=== PATIENT | male | born 1990 | race Caucasian/White ===

== ENCOUNTER 2017-04-17 12:16 | Emergency (ER) | payer OTHER ==
[2017-04-17 12:31] VITALS: BP 127/78
--- NOTE | 2017-04-17 12:48 | ER Document Report ---
ED Psych Disorder / Suicide - General Mode of Arrival: Ambulatory Information source: Patient TRAVEL OUTSIDE OF THE [place] IN LAST 30 DAYS: No - HPI Onset: Just prior to arrival - Refer to HPI notes Similar symptoms previously: No Recently seen / treated by doctor: No <CURTIS ALFARO - Last Filed: 04/17/17 13:46> <ROBERT LEWIS - Last Filed: 04/17/17 14:28> - General Chief Complaint: Psych Problem Stated Complaint: PSYCH EVAL Time Seen by Provider: 04/17/17 12:42 Notes: Patient is a 26 year old male presenting to the ED for a psychological evaluation. Patient and his spouse are having financial problems and they were fighting. Patient states he said some suicidal ideation statements that he did not mean. Patient denies being suicidal, or having a suicidal plan. Patient's spouse called law enforcement and was recommended to come for an evaluation. Patient has a history of hypercholesterolemia. (CURTIS ALFARO) - Related Data Allergies/Adverse Reactions: erythromycin base [Erythromycin Base] Allergy (Verified 01/01/13 14:15) rash Past Medical History - Social History Smoking Status: Current Every Day Smoker Chew tobacco use (# tins/day): No Frequency of alcohol use: Rare Drug Abuse: None Family History: Reviewed & Not Pertinent Patient has suicidal ideation: Yes Patient has homicidal ideation: No Past Surgical History: Reports: Hx Tonsillectomy - Immunizations Hx Diphtheria, Pertussis, Tetanus Vaccination: Yes <CURTIS ALFARO - Last Filed: 04/17/17 13:46> Review of Systems - Review of Systems Constitutional: No symptoms reported EENT: No symptoms reported Cardiovascular: No symptoms reported Respiratory: No symptoms reported Gastrointestinal: No symptoms reported Genitourinary: No symptoms reported Male Genitourinary: No symptoms reported Musculoskeletal: No symptoms reported Skin: No symptoms reported Hematologic/Lymphatic: No symptoms reported Neurological/Psychological: See HPI -: Yes All other systems reviewed and negative <CURTIS ALFARO - Last Filed: 04/17/17 13:46> Physical Exam <CURTIS ALFARO - Last Filed: 04/17/17 13:46> <ROBERT LEWIS - Last Filed: 04/17/17 14:28> - Vital signs Vitals: Temp Pulse Resp BP Pulse Ox 98.5 F 99 18 127/78 H 96 06/06/17 12:27 04/17/17 12:27 04/17/17 12:27 04/17/17 12:27 04/17/17 12:27 - Notes Notes: GENERAL: Alert, interacts well. No acute distress. HEAD: Normocephalic, atraumatic. EYES: Pupils equal, round, and reactive to light. ENT: Oral mucosa moist, tongue midline. NECK: Full range of motion. Supple. Trachea midline. LUNGS: Clear to auscultation bilaterally, no wheezes, rales, or rhonchi. No respiratory distress. HEART: Regular rate and rhythm. No murmurs, gallops, or rubs. ABDOMEN: Soft, non-tender. EXTREMITIES: Moves all 4 extremities spontaneously. NEUROLOGICAL: Alert and oriented x3. Normal speech. PSYCH: Normal affect, normal mood, denies suicidal ideation, no evidence for hallucinations or delusions. SKIN: Warm, dry, normal turgor. No rashes or lesions noted. (CURTIS ALFARO) Course - Laboratory Result Diagrams: 04/17/17 13:05 04/17/17 13:05 <CURTIS ALFARO - Last Filed: 04/17/17 13:46> - Laboratory Result Diagrams: 04/17/17 13:05 04/17/17 13:05 <ROBERT LEWIS - Last Filed: 04/17/17 14:28> - Re-evaluation Re-evalutation: 04/17/17 14:22 Patient reported no suicidal ideation to me. States he just said about shooting himself during the heat of the argument with his . He was seen and evaluated by psychiatry. After they contacted his the patient eloped. His was contacted again and was comfortable with him coming home and began has been hidden away and they have a friend coming from [place] who will be staying with them a few days. She had no other concerns for her or her family as well. (ROBERT LEWIS) - Vital Signs Vital signs: Temp Pulse Resp BP Pulse Ox 98.5 F 99 18 127/78 H 96 04/17/17 12:27 04/17/17 12:27 04/17/17 12:27 04/17/17 12:27 04/17/17 12:27 - Laboratory Laboratory results interpreted by me: 04/17/17 04/17/17 13:05 13:05 Urine Ascorbic Acid 40 H Salicylates < 1.0 L Acetaminophen < 10 L Discharge <CURTIS ALFARO - Last Filed: 04/17/17 13:46> <ROBERT LEWIS - Last Filed: 04/17/17 14:28> - Discharge Clinical Impression: Depression Condition: Stable Disposition: HOME, SELF-CARE Additional Instructions: Follow-up as directed by psychiatry. Scribe Documentation - Scribe Written by Scribe:: Kena Alejandre, 04/17/2017 13:44 acting as scribe for :: Aki <CURTIS ALFARO - Last Filed: 04/17/17 13:46>
[2017-04-17 13:29] LABS: ABSOLUTE EOSINOPHILS # (AUTO) 0.4 10^3/uL (0.0-0.6); ABSOLUTE LYMPHOCYTES (AUTO) 2.2 10^3/uL (0.5-4.7); ABSOLUTE MONOCYTES (AUTO) 0.7 10^3/uL (0.1-1.4); ABSOLUTE NEUT (AUTO) 6.6 10^3/uL (1.7-8.2); BASOPHILS % (AUTO) 0.5 % (0-2); EOSINOPHILS % (AUTO) 3.6 % (0-6); HEMATOCRIT 46.9 % (37.9-51.0); HEMOGLOBIN 15.6 g/dL (13.5-17.0); HGB HCT DIFFERENCE -0.1; LYMPHOCYTES % (AUTO) 22.1 % (13-45); MEAN CORPUSCULAR HEMOGLOBIN 28.9 pg (27.0-33.4); MEAN CORPUSCULAR HGB CONC 33.3 g/dL (32.0-36.0); MEAN CORPUSCULAR VOLUME 87 fl (80-97); MONOCYTES % (AUTO) 6.7 % (3-13); RED CELL DISTRIBUTION WIDTH 12.4 % (11.5-14.0); SEGMENTED NEUTROPHILS % (AUTO) 67.1 % (42-78); WHITE BLOOD COUNT 9.8 10^3/uL (4.0-10.5)
[2017-04-17 13:34] LABS: APPEARANCE,URINE SLIGHTLY-CLOUDY; BILIRUBIN,URINE NEGATIVE (NEGATIVE); GLUCOSE, URINE NEGATIVE (NEGATIVE); KETONES,URINE NEGATIVE (NEGATIVE); LEUKOCYTE ESTERASE,URINE NEGATIVE (NEGATIVE); NITRITE,URINE NEGATIVE (NEGATIVE); PROTEIN,URINE NEGATIVE (NEGATIVE); URINE SPECIFIC GRAVITY 1.021; UROBILINOGEN,URINE NEGATIVE mg/dL (<2.0)
[2017-04-17 13:46] LABS: URINE BARBITURATES SCREEN NEGATIVE; URINE METHADONE SCREEN NEGATIVE; URINE OPIATES LOW NEGATIVE; URINE PHENCYCLIDINE SCREEN NEGATIVE
[2017-04-17 13:49] LABS: ALANINE AMINOTRANSFERASE 30 U/L (21-72); ALBUMIN 4.8 g/dL (3.5-5.0); ALKALINE PHOSPHATASE 79 U/L (38-126); ANION GAP 11 (5-19); ASPARTATE AMINO TRANSFERASE 23 U/L (17-59); BILIRUBIN,DIRECT 0.3 mg/dL (0.0-0.4); BILIRUBIN,TOTAL 0.8 mg/dL (0.2-1.3); BLOOD UREA NITROGEN 14 mg/dL (7-20); CALCIUM 10.2 mg/dL (8.4-10.2); CARBON DIOXIDE 26 mmol/L (22-30); CHLORIDE 105 mmol/L (98-107); CREATININE RESULT 0.81 mg/dL (0.52-1.25); GLUCOSE 105 mg/dL (75-110); POTASSIUM 4.1 mmol/L (3.6-5.0); SODIUM 142.1 mmol/L (137-145); TOTAL PROTEIN 8.2 g/dL (6.3-8.2)
[2017-04-17 13:51] LABS: ALCOHOL < 10 mg/dL (NONE DETECTED)
--- NOTE | 2017-04-17 14:42 | ER Document Report ---
ED Psych Disorder / Suicide - General Chief Complaint: Psych Problem Stated Complaint: PSYCH EVAL Time Seen by Provider: 04/17/17 12:42 Mode of Arrival: Ambulatory Information source: Patient, Relative, [facility] Records TRAVEL OUTSIDE OF THE [place] IN LAST 30 DAYS: No - HPI Patient complains to provider of: Suicidal ideation Onset: Just prior to arrival Onset was: Sudden Suicide Risk Factors: Depressed Normal mood: Yes Associated symptoms: Normal affect, Normal mood, Depressed - multiple years., Other - medically retired in 2013 for shoulder, knee, back Similar symptoms previously: Yes Recently seen / treated by doctor: No Notes: Patient is a 26 year old male who presents today via [facility] after an argument with his escalated and he made statements suggesting suicidal ideations. Patient states he made comments he should not have under stress. Patient states they were arguing and after he made the comments he left to drive to the store to purchase a soda and smoke some cigarettes and calm down. Patient states his must have called 911 because he was pulled him over and encouraged him to present to the ED (in their patrol car) for evaluations. Patient states he is not suicidal, and should not have made the comments. Patient states he and his recently relocated to [place] from [place]. He states they were both previously stationed here at [employer]. 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 Patient states they have filed bankruptcy, which is one of their stressors. Patient endorses a history of depression, and trauma related symptoms ( nightmares) for which he was previously treated via the [place], with medications ( Effexor, Welbutrin, Prazocin, Seroquel, Lunesta, Restoril, Zoloft, Ambien). Patient states it has been roughly 1 year since he has taken them, and that he chose to discontinue his medications and treatment due to "being sick of them." Patient denies current outpatient treatment. Patient denies any prior attempts at suicide. Patient any inpatient psychiatric treatment. Patient denies drugs and alcohol. Patient denies current SI/HI. Patient made aware that this clinician would be contacting his to obtain collateral information. Allison : states they argued because their oldest son wanted to come inside from playing because it was hot. She states she felt his anger was out of control and she told him to leave due to his anger. She states sometimes he gets really angry and it is hard for their children to understand. She states she is not fearful for him to return home, or fearful for their children, but wants him to go and get the help she thinks he needs. She states he did make the comment that he was going to blow his head off. She states he went inside to their bedroom where the gun is located, but does not know if he put the gun to his head. She states in the past he has been willing to get help , but [facility] and doesn't feel like his needs are being met. She states they just moved this past Sunday and knows that the stress from the move has increased his symptoms. states that the patient has threatened suicide in the past, but has made no attempts. She states he has never made gestured. states she has hidden the gun in the home and he will not find it. Discussed with that if the patient wants to find it, he will. states their friend is coming from out of town, and she will speak with them re: taking the gun. She states the friend that is coming is his former bail agent from his unit who plans on staying for a couple of days. Patient is A&O. Mood is irritable, but mostly guarded. Affect was normal. Patient denies SI/HI. Patient denies A/V H; delusions not noted. Thought processes were guarded. Conversational speech was WNL for prosody. Intellectual abilities were estimated within average range. Attention and focus were fair. Insight, judgment, and impulse control were poor. Posttraumatic Stress Disorder, per history Patient has left the Department prior to disposition. Discussed with ED MD who is in agreement that the patient demonstrated poor impulse control and judgment ; however did deny he was suicidal. This was corroborated by his , who was made aware of patient leaving the Department. reports she is not concerned with her safety or the safety of their children or the patient. states she will have the gun removed from their home. Note, patient returned contact at 1440 stating he told his nurse Ila he was done and was leaving. Patient is home. Patient denies wanting to follow up with the [facility] or anyone else. MD made aware. Patient is recommended for discharge. - Related Data Allergies/Adverse Reactions: erythromycin base [Erythromycin Base] Allergy (Verified 01/01/13 14:15) rash Past Medical History - General Information source: Patient - Social History Smoking Status: Current Every Day Smoker Chew tobacco use (# tins/day): No Frequency of alcohol use: Rare Drug Abuse: None Family History: Reviewed & Not Pertinent Patient has suicidal ideation: Yes Patient has homicidal ideation: No Renal/ Medical History: Denies: Hx Peritoneal Dialysis Past Surgical History: Reports: Hx Tonsillectomy - Immunizations Hx Diphtheria, Pertussis, Tetanus Vaccination: Yes Physical Exam - Vital signs Vitals: Temp Pulse Resp BP Pulse Ox 98.5 F 99 18 127/78 H 96 04/17/17 12:27 04/17/17 12:27 04/17/17 12:27 04/17/17 12:27 04/17/17 12:27 Course - Vital Signs Vital signs: Temp Pulse Resp BP Pulse Ox 98.5 F 99 18 127/78 H 96 04/17/17 12:27 04/17/17 12:27 04/17/17 12:27 04/17/17 12:27 04/17/17 12:27 - Laboratory Result Diagrams: 04/17/17 13:05 04/17/17 13:05 Laboratory results interpreted by me: 04/17/17 04/17/17 13:05 13:05 Urine Ascorbic Acid 40 H Salicylates < 1.0 L Acetaminophen < 10 L Discharge - Discharge Clinical Impression: Depression Condition: Stable Disposition: HOME, SELF-CARE Additional Instructions: Follow-up as directed by psychiatry.
--- NOTE | 2017-04-17 17:17 | EKG REPORT ---
SEVERITY:- NORMAL ECG - SINUS RHYTHM : Confirmed by: Sharona Rojas MD 17-Apr-2017 17:16:42
== END 2017-04-17 14:59 | disposition home or self-care (01) ==
LOC: ER 12:16
DX: F32.9 Major depressive disorder, single episode, unspecified (principal); F17.210 Nicotine dependence, cigarettes, uncomplicated
CPT/HCPCS: 36415; 80053; 80307; 81001; 85025; 93005; 93010; 99284

== ENCOUNTER 2017-08-30 08:58 | Emergency (ER) | payer OTHER ==
[2017-08-30 09:06] VITALS: BP 126/80
--- NOTE | 2017-08-30 09:28 | ER Document Report ---
HPI - HPI Pain Level: 3 Context: Patient is a 26-year-old male presents emergency department complaining of left anterior ankle pain. Patient states that he was sparring in martial arts and he was not sure if he rolled it or someone stepped on it or kicked him. Patient admits to pain with ambulation. Otherwise states his pain is a 3 out of 5 in severity at the worst. Patient states that he took Motrin last evening for pain and is declining pain medication at this time. Otherwise healthy male. No previous trauma, procedures on this extremity. - REPRODUCTIVE Reproductive: DENIES: : Past Medical History - Social History Smoking Status: Current Every Day Smoker Chew tobacco use (# tins/day): No Frequency of alcohol use: Occasional Drug Abuse: None Family History: Reviewed & Not Pertinent Renal/ Medical History: Denies: Hx Peritoneal Dialysis Past Surgical History: Reports: Hx Tonsillectomy - Immunizations Hx Diphtheria, Pertussis, Tetanus Vaccination: Yes Vertical Provider Document - CONSTITUTIONAL Agree With Documented VS: Yes Exam Limitations: No Limitations General Appearance: WD/WN, No Apparent Distress Notes: PHYSICAL EXAM GENERAL: Alert, interacts well. EXTREMITIES: Mild tenderness to palpation over the anterior ankle without edema , tenderness, ecchymosis over bilateral malleoli of the left ankle. No tenderness to palpation or compression of metatarsals of the left foot. Full range of motion. Moves all 4 extremities spontaneously. No edema, radial and dorsalis pedis pulses 2/4 bilaterally. No cyanosis. NEUROLOGICAL: Alert and oriented x4. Normal speech. PSYCH: Normal affect, normal mood. SKIN: Warm, dry, normal turgor. No rashes or lesions noted. - INFECTION CONTROL TRAVEL OUTSIDE OF THE [place] IN LAST 30 DAYS: No - RESPIRATORY O2 Sat by Pulse Oximetry: 97 Course - Re-evaluation Re-evalutation: 08/30/17 09:46 Patient is a 26-year-old male who is hemodynamically stable, no acute distress and afebrile. No evidence of a dislocation, or fracture on exam and imaging. Vitals wnl. At this time, I do not see an indication for labs or further imaging. Will discharge with conservative measures, return precautions, and follow-up recommendations. - Vital Signs Vital signs: Temp Pulse Resp BP Pulse Ox 98.1 F 92 16 126/80 H 97 08/30/17 09:05 08/30/17 09:05 08/30/17 09:05 08/30/17 09:05 08/30/17 09:05 - Diagnostic Test Radiology reviewed: Image reviewed, Reports reviewed Discharge - Discharge Clinical Impression: Ankle injury Qualifiers: Encounter type: initial encounter Laterality: left Qualified Code(s): S99.912A - Unspecified injury of left ankle, initial encounter Condition: Good Disposition: HOME, SELF-CARE Instructions: Sprained Ankle ([facility]), Ice & Elevation ([facility]), Use of Crutches ([facility] ) Referrals: ELA GAR MD [ACTIVE STAFF] - Follow up as needed
--- NOTE | 2017-08-30 09:40 | RADIOLOGY REPORT (SQ) ---
EXAM DESCRIPTION: ANKLE LEFT COMPLETE COMPLETED DATE/TIME: 08/30/2017 9:24 am REASON FOR STUDY: painful COMPARISON: None. NUMBER OF VIEWS: Three views. TECHNIQUE: AP, lateral, and oblique radiographic images acquired of the left ankle. LIMITATIONS: None. FINDINGS: MINERALIZATION: Normal. BONES: No acute fracture or dislocation. No worrisome bone lesions. JOINTS: No effusions. SOFT TISSUES: No soft tissue swelling. No foreign body. OTHER: No other significant finding. IMPRESSION: NEGATIVE STUDY OF THE LEFT ANKLE. NO RADIOGRAPHIC EVIDENCE OF ACUTE INJURY. TECHNICAL DOCUMENTATION: JOB ID: [id number] Scan- All Rights Reserved
== END 2017-08-30 09:51 | disposition home or self-care (01) ==
LOC: ER 08:58
DX: S99.912A Unspecified injury of left ankle, initial encounter (principal); F17.200 Nicotine dependence, unspecified, uncomplicated; X58.XXXA Exposure to other specified factors, initial encounter
CPT/HCPCS: 99283